=== PATIENT | male | born 1955 | race Caucasian/White ===

== ENCOUNTER 2017-08-11 09:40 | Emergency (ER) | payer OTHER ==
[~2017-08-11] VITALS: Ht 185.4 cm; Wt 133.8 kg
[2017-08-11] MEDS ORDERED: CARVEDILOL3.125 MG PO (09:57)
[2017-08-11] MEDS ORDERED: PLAVIX75 MG PO (09:57)
[2017-08-11] MEDS ORDERED: GLUCOPHAGE XR500 MG PO (09:58)
[2017-08-11] MEDS ORDERED: LIPITOR10 MG PO (09:59)
[2017-08-11] MEDS ORDERED: ASPIR 8181 MG PO (09:59)
[2017-08-11] MEDS ORDERED: FLUOXETINE HCL25 GM MISC (10:52)
[2017-08-11] MEDS ORDERED: LISINOPRIL5 MG PO (10:53)
[2017-08-11] MEDS ORDERED: PROTONIX40 M1 PO (10:53)
[2017-08-11] MEDS ORDERED: ZOLOFT50 MG PO (10:53)
[2017-08-11] MEDS ORDERED: TRAZODONE HCL50 MG PO (10:54)
[2017-08-11] MEDS ORDERED: VENTOLIN HFA18 GM INH (10:54)
[2017-08-11] MEDS ORDERED: MECLIZINE HCL25 MG PO (12:47)
--- NOTE | 2017-08-12 19:15 | EKG ---
[facility] [address] [facility] [place] [address] Signed Normal sinus rhythm Normal ECG No previous ECGs available Confirmed by GABBIE MACIAS MD ([id number] on 08/12/2017 7:15:44 PM Electronically Signed By: GABBIE MACIAS MD 08/12/17 1915 PATIENT NAME: SULEMA NGUYEN Electrocardiogram DATE OF : 59 PHYSICIAN: GABBIE MACIAS MD REPORT #: [id number] REPORT IS CONFIDENTIAL AND NOT TO BE RELEASED WITHOUT AUTHORIZATION
== END 2017-08-11 13:15 | disposition home or self-care (01) ==
LOC: ED 09:40
DX: M94.0 Chondrocostal junction syndrome [Tietze] (principal); R42 Dizziness and giddiness; E11.9 Type 2 diabetes mellitus without complications; E78.00 Pure hypercholesterolemia, unspecified; Z90.49 Acquired absence of other specified parts of digestive tract; Z95.5 Presence of coronary angioplasty implant and graft; Z79.899 Other long term (current) drug therapy; Z79.84 Long term (current) use of oral hypoglycemic drugs; Z79.82 Long term (current) use of aspirin
CPT/HCPCS: 71020; 80053; 84484; 85025; 85379; 93005; 93010; 99284